=== PATIENT | female | born 1990 | race Asian ===

== ENCOUNTER 2017-07-07 18:25 | Emergency (ER) | payer BC, MEDICAID ==
[~2017-07-07] VITALS: Ht 157.5 cm; Wt 56.8 kg
[2017-07-07 19:11] LABS: INFLUENZA TYPE A NEGATIVE FOR TYPE A (NEGATIVE); INFLUENZA TYPE B NEGATIVE FOR TYPE B (NEGATIVE); RAPID GROUP A STREP NEGATIVE (NEGATIVE)
[2017-07-07] MEDS ORDERED: IBUPROFEN 600 MG TABLET PO ONE (20:00)
[2017-07-07] MEDS ORDERED: GuaiFENesin/D-METHORPHAN [SUGAR-FREE] 200-20MG/10 ML SYRUP UDCUP PO ONE (20:00)
[2017-07-07] MEDS ORDERED: ACETAMINOPHEN/CODEINE 300-30 MG TABLET PO ONE (20:00)
[2017-07-07 20:26] VITALS: BP 114/78
== END 2017-07-07 20:47 | disposition home or self-care (01) ==
LOC: EMS 18:28
DX: J02.9 Acute pharyngitis, unspecified (principal); J06.9 Acute upper respiratory infection, unspecified; R51 Headache
CPT/HCPCS: 81025; 87430; 87804; 99284